=== PATIENT | female | born 1980 | race African-American/Black ===

== ENCOUNTER 2017-08-28 14:36 | Emergency (ER) | payer MEDICARE, MEDICAID ==
[~2017-08-28] VITALS: Ht 172.7 cm; Wt 129.5 kg
[~2017-08-28 14:36] MED LIST: CLIN1LOT TOPICAL; ERGO1CAP10 PO; HYDR-3288 PO; HYDR12.57 PO; VITA20004 PO; VITA500012 PO; ZANT150T2 PO
[2017-08-28 14:38] VITALS: BP 234/109; PULSE 78; RESP 18; TEMP 98.4; O2SAT 100
[2017-08-28] MEDS ORDERED: ASPIRIN 81 MG CHEW TAB PO ONE (15:30)
[2017-08-28] MEDS ORDERED: SODIUM CHLORIDE 0.9% FLUSH 10 ML FLUSH IVF PRN (15:30)
[2017-08-28] MEDS ORDERED: NITROGLYCERIN 2% OINT 1 GM PACKET TOPICAL ONE (15:30)
[2017-08-28 15:47] LABS: AUTOMATED NEUTROPHIL # 6.6 TH/MM3 (1.8-7.7); BASOPHIL # 0.1 TH/MM3 (0-0.2); BASOPHIL % 0.9 % (0.0-2.0); EOSINOPHIL # 0.5 TH/MM3 (0-0.4); EOSINOPHIL % 3.9 % (0.0-4.0); HEMATOCRIT 40.6 % (35.0-46.0); HEMO FLAGS DIFF FINAL; LYMPH % 35.3 % (9.0-44.0); LYMPHOCYTE # 4.6 TH/MM3 (1.0-4.8); MEAN CELL VOLUME 81.5 FL (80.0-100.0); MEAN CORPUSCULAR HEMOGLOBIN 27.5 PG (27.0-34.0); MEAN CORPUSCULAR HGB CONC 33.7 % (32.0-36.0); MONO % 8.6 % (0.0-8.0); NEUT % 51.3 % (16.0-70.0); PLATELET COUNT 298 TH/MM3 (150-450); RED BLOOD COUNT 4.98 MIL/MM3 (4.00-5.30); RED CELL DISTRIBUTION WIDTH 15.2 % (11.6-17.2); WHITE BLOOD COUNT 12.9 TH/MM3 (4.0-11.0)
--- NOTE | 2017-08-28 16:00 | RADRPT ---
EXAM DATE/TIME: 08/28/2017 15:46 [place] COMPARISON: No previous studies available for comparison. INDICATIONS : Chest pain. MEDICAL HISTORY : Hypertension. Gastroesophageal reflux disease. Heart murmur. Avascular necrosis. SURGICAL HISTORY : Right foot tendon repair. Mass removed from left breast. ENCOUNTER: Initial ACUITY: 3 weeks PAIN SCORE: 5/10 LOCATION: Bilateral chest FINDINGS: A single view of the chest demonstrates the lungs to be symmetrically aerated without evidence of mas s, infiltrate or effusion. The cardiomediastinal contours are unremarkable. Osseous structures are intact. CONCLUSION: 1. No acute cardiopulmonary findings. Seth Rodriguez MD on August 28, 2017 at 15:59 Board Certified Radiologist. This report was verified electronically.
[2017-08-28 16:02] LABS: APTT (PATIENT) 28.2 SEC (24.3-30.1); INTERNATIONAL NORMALIZED RATIO 1.1 RATIO; PROTHROMBIN TIME - PATIENT 12.4 SEC (9.8-11.6)
[2017-08-28 16:06] VITALS: BP 173/92; PULSE 85; RESP 16; O2SAT 100
[2017-08-28 16:28] LABS: ANION GAP 5 MEQ/L (5-15); BICARBONATE 30.9 MEQ/L (21.0-32.0); BLOOD UREA NITROGEN 10 MG/DL (7-18); CHLORIDE 103 MEQ/L (98-107); CREATINE KINASE 144 U/L (26-192); GLOMERULAR FILTRATION RATE 84 ML/MIN (>89); MAGNESIUM 1.8 MG/DL (1.5-2.5); SODIUM (NA) 139 MEQ/L (136-145)
--- NOTE | 2017-08-28 16:40 | PD ---
HPI Chief Complaint: Chest Pain Time Seen by Provider: 15:55 Travel History International Travel<30 days: No Contact w/Intl Traveler<30days: No Traveled to known affect area: No History of Present Illness HPI 37-year-old female with PMH of HTN, obesity, GERD presents to the ED for evaluation of intermittent left-sided chest pain and left-sided low back pain. Rated 8/10. Chest pain is described as intermittent, sudden, sharp for approximately 3 weeks. No alleviating or exacerbating factors reported. Back pain is reported as dull, crampy, worsened by certain movements for approximately 3 days. The patient denies fever, chills, palpitations, shortness of breath, abdominal pain, nausea, vomiting, dysuria, known trauma. She saw her primary care provider for the back pain today who was concerned when she reported her chest pain symptoms. Patient states that she has quit smoking approximately 2 weeks ago. She did this secondary to the onset of the chest pain. She denies family history of UT. She's never had a cardiac workup. She endorses compliance with her daily medications. PFSH Past Medical History Diminished Hearing: No Gastrointestinal Disorders: Yes GERD: Yes Hypertension: Yes Tetanus Vaccination: > 5 Years Influenza Vaccination: No ?: Not LMP: 08/17/17 : 2 Para: 1 Miscarriage: 1 Past Surgical History Other Surgery: Yes (mass removed from left breast ) Social History Alcohol Use: Yes (on occasion) Tobacco Use: Yes (one a day cig) Substance Use: No Allergies-Medications (Allergen,Severity, Reaction): Coded Allergies: No Known Allergies (Verified Adverse Reaction, Unknown, 08/28/17) Reported Meds & Prescriptions Reported Meds & Active Scripts Active Flexeril (Cyclobenzaprine HCl) 10 Mg Tab 10 Mg PO TID Ibuprofen 800 Mg Tab 800 Mg PO Q8H PRN Review of Systems Except as stated in HPI: all other systems reviewed are Neg Physical Exam Narrative GENERAL: Pleasant, obese black female in no acute distress. SKIN: Focused skin assessment warm/dry. HEAD: Normocephalic. EYES: No scleral icterus. No injection or drainage. NECK: Supple, trachea midline. No JVD or lymphadenopathy. CARDIOVASCULAR: Regular rate and rhythm without murmurs, gallops, or rubs. RESPIRATORY: Breath sounds clear and equal bilaterally. No accessory muscle use. GASTROINTESTINAL: Abdomen soft, non-tender, nondistended. Active bowel sounds MUSCULOSKELETAL: No cyanosis, or edema. BACK: Nontender without obvious deformity. + Left-sided CVA tenderness. Data Data Last Documented VS Vital Signs Date Time Temp Pulse Resp B/P (MAP) Pulse Ox O2 Delivery O2 Flow Rate FiO2 08/28/17 16:06 85 16 173/92 (119) 100 Room Air 08/28/17 14:38 98.4 Orders Orders Electrocardiogram (08/28/17:24) Basic Metabolic Panel (Bmp) (08/28/17:24) Ckmb (Isoenzyme) Profile (08/28/17:24) Complete Blood Count With Diff (08/28/17) Magnesium (Mg) (08/28/17) Prothrombin Time / Inr (Pt) (08/28/17:24) Act Partial Throm Time (Ptt) (08/28/17:24) Troponin I (08/28/17:24) Chest, Single Ap (08/28/17:24) Ecg Monitoring (08/28/17:24) Bilateral Bp Monitoring (08/28/17:24) Iv Access Insert/Monitor (08/28/17:) Oximetry (08/28/17:24) Oxygen Administration (08/28/17:24) Aspirin Chew (Aspirin Chew) (08/28/17 15:30) Sodium Chloride 0.9% Flush (Ns Flush) (08/28/17 15:30) Nitroglycerin 2% Oint (Nitroglycerin 2% (08/28/17 15:30) CKMB (08/28/17 15:30) CKMB% (08/28/17 15:30) Urinalysis - C+S If Indicated (08/28/17 16:55) Ranitidine Liq (Zantac Liq) (08/28/17 17:30) Cyclobenzaprine (Flexeril) (08/28/17 17:30) Ketorolac Inj (Toradol Inj) (08/28/17 17:30) Labs Laboratory Tests Test 08/28/17 15:30 08/28/17 17:20 White Blood Count 12.9 TH/MM3 Red Blood Count 4.98 MIL/MM3 Hemoglobin 13.7 GM/DL Hematocrit 40.6 % Mean Corpuscular Volume 81.5 FL Mean Corpuscular Hemoglobin 27.5 PG Mean Corpuscular Hemoglobin Concent 33.7 % Red Cell Distribution Width 15.2 % Platelet Count 298 TH/MM3 Mean Platelet Volume 8.1 FL Neutrophils (%) (Auto) 51.3 % Lymphocytes (%) (Auto) 35.3 % Monocytes (%) (Auto) 8.6 % Eosinophils (%) (Auto) 3.9 % Basophils (%) (Auto) 0.9 % Neutrophils # (Auto) 6.6 TH/MM3 Lymphocytes # (Auto) 4.6 TH/MM3 Monocytes # (Auto) 1.1 TH/MM3 Eosinophils # (Auto) 0.5 TH/MM3 Basophils # (Auto) 0.1 TH/MM3 CBC Comment DIFF FINAL Differential Comment Prothrombin Time 12.4 SEC Prothromb Time International Ratio 1.1 RATIO Activated Partial Thromboplast Time 28.2 SEC Blood Urea Nitrogen 10 MG/DL Creatinine 0.91 MG/DL Random Glucose 97 MG/DL Calcium Level 8.8 MG/DL Magnesium Level 1.8 MG/DL Sodium Level 139 MEQ/L Potassium Level 4.0 MEQ/L Chloride Level 103 MEQ/L Carbon Dioxide Level 30.9 MEQ/L Anion Gap 5 MEQ/L Estimat Glomerular Filtration Rate 84 ML/MIN Total Creatine Kinase 144 U/L Creatine Kinase MB 0.5 NG/ML Troponin I LESS THAN 0.02 NG/ML Urine Color YELLOW Urine Turbidity CLEAR Urine pH 7.0 Urine Specific [place] 1.017 Urine Protein NEG mg/dL Urine Glucose (UA) NEG mg/dL Urine Ketones NEG mg/dL Urine Occult Blood NEG Urine Nitrite NEG Urine Bilirubin NEG Urine Urobilinogen 2.0 MG/DL Urine Leukocyte Esterase NEG Urine RBC 1 /hpf Urine WBC LESS THAN 1 /hpf Urine Squamous Epithelial Cells <1 /hpf Urine Mucus FEW /lpf Microscopic Urinalysis Comment CULT NOT INDICATED MDM Medical Decision Making Medical Screen Exam Complete: Yes Emergency Medical Condition: Yes Differential Diagnosis Chest pain versus musculoskeletal back pain versus pyelonephritis versus other Narrative Course 37-year-old female with PMH of HTN, obesity, GERD presents to the ED for evaluation of intermittent left-sided chest pain and left-sided low back pain. Rated 8/10. Chest pain is described as intermittent, sudden, sharp for approximately 3 weeks. No alleviating or exacerbating factors reported. Back pain is reported as dull, crampy, worsened by certain movements for approximately 3 days. She saw her PCP for the back pain today who was concerned when she reported her chest pain symptoms. Patient states that she has quit smoking approximately 2 weeks ago. She did this secondary to the onset of the chest pain. She denies family history of UT. She's never had a cardiac workup. Vitals reviewed. Patient's hypertensive on presentation. She states that she did not take her medication today. On exam the patient has tenderness to palpation in the left CVA region. Otherwise unremarkable. IV was established. Patient was administered nitroglycerin paste in the triage area. She is administered aspirin in the room. She is administered IV Toradol and by mouth Norflex. EKG rate 70, sinus rhythm. AK interval 157, QRS 83, QTC 379 ms. Normal axis. No ST changes. Reviewed by Dr. Charles. CXR: No acute cardiopulmonary findings. Cardiac enzymes: Negative 1. Lab work reveals mild elevation of the white count which I suspect is related to stress. No other concerning abnormalities. On recheck the patient's complaining of her GERD symptoms. She is administered ranitidine by mouth. I discussed the results of the workup with the patient. I recommended admission to the chest pain center for stress testing. She is agreeable to this plan. Approximately 30 minutes after admission orders were entered the patient called me to the room and stated that she needed to leave due to early childhood director issues. I explained to her the risks of leaving, up to and including . She still chose to leave AGAINST MEDICAL ADVICE. She was provided with a short course of anti-inflammatories and muscle relaxants, cautioned not to drive while taking muscle relaxants, instructed to follow up with the primary care and consulting it architect. She indicated understanding of instructions. She is stable and discharged AGAINST MEDICAL ADVICE. Diagnosis Primary Impression: Musculoskeletal back pain Additional Impression: Chest pain Qualified Codes: R07.9 - Chest pain, unspecified Referrals: [facility] Patient Instructions: Chest Pain (ED), General Instructions, Musculoskeletal Pain (ED) Additional Instructions: Rest, hydrate. Return to normal, gentle activity as tolerated. Take muscle relaxants and antiinflammatories as prescribed. Do not drive while taking muscle relaxants as they may cause drowsiness. Follow up with the consulting it architect and PCP as discussed. Return to the ED for any urgent or emergent medical condition. Med/Other Pt SpecificInfo: Prescription(s) given Scripts Cyclobenzaprine (Flexeril) 10 Mg Tab 10 MG PO TID for Muscle Spasm, #15 TAB 0 Refills Prov: Roman Raymond MD 08/28/17 Ibuprofen (Ibuprofen) 800 Mg Tab 800 MG PO Q8H Y for PAIN SCALE 1 TO 10, #15 TAB 0 Refills Prov: Roman Raymond MD 08/28/17 Disposition: 07 AGAINST MEDICAL ADVICE Condition: Pushpa Alvarez Aug 28, 2017 16:40
[2017-08-28 16:44] LABS: CKMB 0.5 NG/ML (0.5-3.6)
[2017-08-28] MEDS ORDERED: CYCLOBENZAPRINE HCL 10 MG TAB PO ONE (17:30)
[2017-08-28] MEDS ORDERED: KETOROLAC TROMETHAMINE 30 MG/ML (IVP) VIAL IV PUSH ONE (17:30)
[2017-08-28] MEDS ORDERED: RANITIDINE HCL SYRUP 150 MG/10 ML UDC PO ONE (17:30)
[2017-08-28 17:57] LABS: BLOOD, URINE NEG (NEG); COMMENT (UR) CULT NOT INDICATED; CULTURE IF INDICATED CULT NOT INDICATED; GLUCOSE,URINE NEG (NEG); KETONE, URINE NEG (NEG); MUCUS URINE FEW /lpf (OCC); NITRITE,URINE NEG (NEG); SQUAMOUS EPITHELIAL CELL URINE <1 /hpf (0-5); URINE COLOR YELLOW (YELLW/STRAW)
[2017-08-28 18:02] VITALS: BP 199/90; PULSE 85; RESP 16; O2SAT 100
[2017-08-28] MEDS ORDERED: IBUP1TAB7 PO (18:26)
[2017-08-28] MEDS ORDERED: CYCL10TA PO (18:26)
[2017-08-28 18:34] VITALS: BP 190/90; PULSE 88; RESP 14; O2SAT 100
--- NOTE | 2017-08-29 16:16 | EKG ---
Date Performed: 08/28/2017 Time Performed: 15:25:28 PTAGE: 37 years EKG: MINOR NONSPECIFIC T-WAVE ABNORMALITY INFERIORLY OTHERWISE WITHIN NORMAL LIMITS BORDERLINE E CG NO PREVIOUS TRACING DOCTOR: Morales Becerra Interpretating Date/Time 08/29/2017 16:15:09
== END 2017-08-28 18:37 | disposition left against medical advice (07) ==
LOC: NEPC 14:36 → UNDOADMOB 17:41 → NEDA 17:41
DX: M54.9 Dorsalgia, unspecified (principal); R07.9 Chest pain, unspecified; I10 Essential (primary) hypertension; K21.9 Gastro-esophageal reflux disease without esophagitis; E66.9 Obesity, unspecified; F17.210 Nicotine dependence, cigarettes, uncomplicated
CPT/HCPCS: 71010; 80048; 81001; 82550; 82552; 83735; 84484; 85025; 85610; 85730; 93005; 96374; 99285; J1885

== ENCOUNTER 2017-09-04 17:40 | Emergency (ER) | payer MEDICARE, MEDICAID ==
[~2017-09-04] VITALS: Ht 177.8 cm; Wt 129.0 kg
[~2017-09-04 17:40] MED LIST changes: -CLIN1LOT TOPICAL; +CYCL10TA PO; -ERGO1CAP10 PO; -HYDR-3288 PO; -HYDR12.57 PO; +IBUP1TAB7 PO; -VITA20004 PO; -VITA500012 PO; -ZANT150T2 PO
[2017-09-04 17:42] VITALS: BP 157/91; PULSE 112; RESP 22; TEMP 99.3; O2SAT 99
[2017-09-04] MEDS ORDERED: ZANT150T2 PO (17:55)
[2017-09-04] MEDS ORDERED: CEPH-460 PO (18:14)
--- NOTE | 2017-09-04 18:14 | PD ---
HPI Chief Complaint: Lump, Cyst, Hernia Time Seen by Provider: 18:11 Travel History International Travel<30 days: No Contact w/Intl Traveler<30days: No Traveled to known affect area: No History of Present Illness HPI 37 yo F boil under left arm, about three four days, no fever, hot towels were helpful. it appears to have popped in once place per patient. pt reports similar episodes previously. a clindagel script was not helpful. PFSH Past Medical History Diminished Hearing: No Gastrointestinal Disorders: Yes GERD: Yes Hypertension: Yes : 2 Para: 1 Miscarriage: 1 Past Surgical History Other Surgery: Yes (mass removed from left breast ) Social History Alcohol Use: Yes (on occasion) Tobacco Use: Yes (one a day cig) Substance Use: No Allergies-Medications (Allergen,Severity, Reaction): Coded Allergies: No Known Allergies (Verified Adverse Reaction, Unknown, 09/04/17) Reported Meds & Prescriptions Reported Meds & Active Scripts Active Keflex (Cephalexin) 500 Mg Cap 500 Mg PO Q8H 7 Days Reported Zantac (Ranitidine HCl) 150 Mg Tab 150 Mg PO DAILY Review of Systems General / Constitutional: No: Fever Physical Exam Narrative GENERAL: 37 yo F wnwd, mild distress 2/2 pain SKIN: Warm and dry. abscess in left axilla approx 5 cm x 2cm minimal brown discharge. + fluctuance. HEAD: Normocephalic. EYES: No scleral icterus. No injection or drainage. MUSCULOSKELETAL: No cyanosis, or edema. BACK: Nontender without obvious deformity. No CVA tenderness. Data Data Last Documented VS Vital Signs Date Time Temp Pulse Resp B/P (MAP) Pulse Ox O2 Delivery O2 Flow Rate FiO2 09/04/17 17:54 16 09/04/17 17:42 99.3 112 157/91 (113) 99 Room Air VS reviewed Orders Orders Ed Discharge Order (09/04/17 18:42) MDM Medical Decision Making Medical Screen Exam Complete: Yes Emergency Medical Condition: Yes Medical Record Reviewed: Yes Differential Diagnosis abscess, cellulitis, dermatitis Narrative Course abscess drained at bedside pt reports complete relief scripts as below Procedures Procedure Narrative After the risks and benefits were discussed the following procedure was performed: INCISION AND DRAINAGE OF ABSCESS: The area was prepped and was sterilely draped. A subcutaneous wheal of1% Xylocaine with a total number 3mL was used to anesthetize the area. The area was properly anesthetized. A number 11 scalpel was used to make a 1 -cm incision across the area of the abscess. The abscess was drained an irrigated with normal saline. Quarter inch iodoform packing was placed in the wound. Sterile dressing applied. Patient advised to have packing removed in two days. Diagnosis Primary Impression: Abscess of axilla, left Med/Other Pt SpecificInfo: Prescription(s) given Scripts Cephalexin (Keflex) 500 Mg Cap 500 MG PO Q8H for Infection for 7 Days, #21 CAP 0 Refills Prov: Seth Esquivel MD 09/04/17 Disposition: 01 DISCHARGE HOME Condition: Stable Seth Esquivel MD Sep 04, 2017 18:14
== END 2017-09-04 19:23 | disposition home or self-care (01) ==
LOC: NEPK 17:40
DX: L02.412 Cutaneous abscess of left axilla (principal); K21.9 Gastro-esophageal reflux disease without esophagitis; I10 Essential (primary) hypertension; F17.210 Nicotine dependence, cigarettes, uncomplicated; Z79.899 Other long term (current) drug therapy
CPT/HCPCS: 10060